=== PATIENT | female | born 1980 | race Caucasian/White ===

== ENCOUNTER 2016-12-31 22:47 | Emergency (ER) | payer MEDICAID, OTHER ==
[2016-12-31 23:10] VITALS: BP 118/72
[2016-12-31] MEDS ORDERED: Ciprofloxacin 500 MG Tab PO ONE (23:34)
--- NOTE | 2017-01-01 13:06 | ER ---
DATE SEEN: 12/31/2016 CHIEF COMPLAINT: Dysuria. HISTORY OF PRESENT ILLNESS: A 36-year-old female with dysuria for four days, burning associated with frequency and urgency. PAST MEDICAL HISTORY: Frequent urinary tract infection. ALLERGIES: Penicillin. PHYSICAL EXAM: GENERAL: Nontoxic, afebrile. ABDOMEN: Soft and benign. LABORATORY DATA: UA showed positive nitrites and 5-10 white cells. IMPRESSION: Urinary tract infection, recurrent. PLAN: Ciprofloxacin 750 mg p.o. b.i.d., fluids, rest, may use [id number] Pyridium. /[id number] AURA/JOHN
== END 2016-12-31 23:36 | disposition home or self-care (01) ==
LOC: FB.ED 22:47
DX: N39.0 Urinary tract infection, site not specified (principal); Z88.0 Allergy status to penicillin
CPT/HCPCS: 81001; 99283; A9270; 99282